=== PATIENT | male | born 1960 | race Caucasian/White ===

== ENCOUNTER → 2017-08-03 10:05 | Day surgery (SDC) | payer OTHER, SELFPAY ==
[2017-07-28 13:50] VITALS: BMI 25.7
[2017-08-03] VITALS (10 sets, daily range): BP systolic 113–177; BP diastolic 68–88; PULSE 56–100; RESP 12–18; TEMP 36.2–36.4; O2SAT 95–100; BMI 25.7
[2017-08-03] MEDS: LACTATED RINGERS 1,000 ML 42 ML IV ×2 (11:35→13:53)
--- NOTE | 2017-08-03 11:53 | PM.PREOP ---
Pre-operative Note Interval Note Changes to the H&P: Patient seen and examined again today. History and physical examination has not changed since original dictation of July 21, 2017. Proceed with laparoscopic ventral hernia repair today as scheduled. Pre-op Check: History & Physical Reviewed and Exam Performed
[2017-08-03] MEDS: CEFAZOLIN 2 GM/100 ML FROZ.PIGGY IV (12:06)
--- NOTE | 2017-08-03 12:44 | SUR.OPER ---
Addendum entered by Jacklyn Miller R.N. 08/03/17 12:47: head on gel donut and foam pad Original Note: Supine on padded OR bed, head on pillow, arm padded and tucked at side, legs uncrossed, safety belt at thigh.
[2017-08-03] MEDS: LIDOCAINE 1% W/EPI INJ 20 ML INJ (13:16)
[2017-08-03] MEDS: BUPIVACAINE 0.5% (PF) 30 ML VIAL 20 ML INJ (13:17)
[2017-08-03] MEDS: [UNRECOGNIZED DRUG - OTHER] IRR (13:18)
[2017-08-03] MEDS: fentaNYL 100 MCG/2 ML INJ 50 MCG IV ×2 (14:42→14:49)
--- NOTE | 2017-08-03 14:54 | P.OP_ITS ---
Operative Date/Time/Diagnoses - Date of procedure: 08/03/17 Time of procedure: 14:44 Pre-op diagnosis: Symptomatic recurrent ventral hernia Post-op diagnosis: same Procedure & Clinicians Procedure: Laparoscopic recurrent ventral hernia repair with mesh Same procedure as scheduled: Yes Indications: 56-year-old male status post umbilical hernia repair in the past who presented with painful umbilical and supraumbilical mass consistent with recurrent ventral hernia. Laparoscopic repair with mesh was recommended. Surgeon: Braulio Sands Anesthesia Type: General Operative Notes Findings: Recurrent umbilical and ventral midline hernia with multiple defects containing incarcerated omentum and preperitoneal fat. Otherwise grossly normal -appearing abdominal contents within the limits of laparoscopy. Closure Type: primary Specimen(s): none sent Implants & Drains: 10 x 15 cm dual sided CQur mesh Applied: implant(s) (Mesh as above) Estimated Blood Loss (mL): 30 Blood products transfused: none Procedure in detail: Patient is brought to the operating room placed supine on the table. After satisfactory induction of anesthesia the abdomen was prepped and draped in usual sterile fashion. A Doyle catheter had been inserted into the urinary bladder to decompress it for the case. Of note, the catheter was removed at the end of the case. Arms were tucked to the side and padded appropriately. A SCOAP time-out was performed per standard protocol. Position for a 12 mm blunt Rosales trocar was chosen in the left upper quadrant. Area was infiltrated with 1-1 mixture 1% lidocaine with 1 100,000 epinephrine and 0.5 % plain Marcaine for postoperative analgesia. Transverse incision was created for distance of approximately 3 cm using a 11. Scalpel blade. Blunt dissection revealed the rectus fascia which was divided transversely and secured with Anthony clamps. Fascia was then secured with 2 individual 0 Vicryl sutures. Blunt dissection divided the rectus muscles in the direction of their fibers and the posterior sheath was entered between hemostats sharply with Metzenbaum scissors under direct visualization. Blunt 12 mm Rosales trocar was then inserted and a carbon dioxide pneumoperitoneum was created. Abdomen was visually explored with a 30 degree 5 mm laparoscope. Findings are as above. Under direct laparoscopic visualization 3 individual 5 mm trocars placed in the abdomen after achieving local anesthesia. Two trocars were placed in the right lateral abdomen and 1 in the left lower quadrant. A combination of sharp and blunt dissection was then applied take down the adhesions between the anterior abdominal wall, hernia sac, and omentum. Hemostasis was achieved with monopolar cautery. Hernia defects were then visualized and measured so that the mesh could cover the defect appropriately with adequate overlap. Mesh was brought onto the operative field and soaked in Ancef solution. Circumferential 0 Ethibond sutures were then placed through the mesh. Mesh was inserted into the abdominal cavity through the 12 mm trocar then opened so that was able to lie flat on the abdomen. Great care was taken to ensure that the coated side of the mesh was in contact with the bowel. Small stab incisions were then made with a 11. Scalpel blade and the suture Passer device was then used to retrieve the sutures percutaneously. Sutures were then pulled taut and the mesh was noted to lie nicely over the hernia defect. I should note that prior to placing the mesh completely a portion of the falciform ligament was divided inferiorly to accommodate adequate overlay of the mesh. Sutures were then tied. Protac laparoscopic tacking device was then used to completely circumferentially secure the mesh to the peritoneal surface. Hemostasis was verified. Pelvis was irrigated with sterile saline solution and suctioned. Irrigant was noted to return clear. Instruments and trocars were then removed under direct visualization and hemostasis was verified. Carbon dioxide was evacuated. Fascia at the left upper quadrant incision was then closed with the previously placed 0 Vicryl suture. Skin at all 4 incisions were then closed with running subcuticular 4 O Monocryl suture. Dermal adhesive was placed over all incisions. Anesthesia was reversed and the patient extubated in the operating room. He was taken recovery stable condition. Complications: none Condition: stable Disposition: PACU Plan for aftercare: 1. Discharged home 2. No heavy lifting more than 20 lb for 4 weeks 3. Follow up in surgery Clinic in 2 weeks
[2017-08-03] MEDS: OXYCODONE/ACETAMINOPHEN 5/325 TABLET 1 TAB PO (15:04)
== END | disposition home or self-care (01) ==
PROVIDERS: Visit Provider Surgery
PROC: 0WQF4ZZ Repair Abdominal Wall, Percutaneous Endoscopic Approach (ICD-10-PCS; CPT 49654; principal; 2017-08-03 12:45)
DX: K43.2 Incisional hernia without obstruction or gangrene (principal); E78.00 Pure hypercholesterolemia, unspecified; K21.9 Gastro-esophageal reflux disease without esophagitis
CPT/HCPCS: 49654; 49652; C1781; J0330; J0690; J1100; J2405; J2704; J3010